=== PATIENT | female | born 1960 | race Caucasian/White ===

== ENCOUNTER 2025-10-08 08:45 | Outpatient (AMB) | payer OTHER, SELFPAY ==
--- OUTSIDE RECORDS SUMMARY | 2025-06-02 03:30 | XMS_ITS ---
Author Organization [facility] Address [address] [place] [address] Care Team Providers Care Recreation Assistant Name Role Phone Luz Toledo Primary Care Provide Keshia Jimenez Unavailable [phone] Encounters Encounter Location Date Provider [facility] [address] [address] 06/02/2025 Keshia Ying Plan Of Treatment No Information Progress Notes * aKl HARDINGenDOB: (64 yo F)Acc No.[id number]:06/02/2025 Progress Notes Patient: Suzanne BERMUDEZ Provider: Ronald Ying DPM :1960 A ge:64 Y S ex:Female Date:06/02/2025 Address:[address] [place], [place] [id number] Pcp:Luz Jacobo in Subjective: * Chief Complaints: * * Medical History: Objective: * Vitals: Assessment: Plan: * Treatment: * Images: * The named appointment provid er may or may not be the originator of this progress note, and it is not deemed complete until electronically signed by the appointment provider. Sign off status: Pending * Provider: Ronald Ying DPM Date: 0 06/02/2025 Generated for Delmy rivera/Matthew/eTransmitting on: 1 12/09/2024 09:27 AM EST
[2025-10-08 08:50] VITALS: BMI 27.0
--- NOTE | 2025-10-08 08:50 | A.PHYSOV ---
Vital Signs 10/08/25 08:50 Height 5 ft 8.5 in Weight 180 lb BMI 27.0 Intake Visit Reasons: NPV Sally Ref-acute pain lt shoulder/cervicalgia Intake Note: Patient is a 64 year old female in office today as a new patient for left shoulder pain. Pain became worse in July [employer] Required: No Allergies No Known Allergies Allergy (Verified 10/08/25 08:51) HPI Comments Details: History of Present Illness The patient is a 64 year old female presenting with problematic left shoulder pain that started approximately six months ago. She initially thought it was arthritis and was previously doing yoga, which seemed to alleviate the symptoms, but she stopped after her father became ill. There was no specific injury. The patient reports that the pain is now constant, occurring even at rest, and is aggravated by all activities, including overhead movements like putting on a shirt and driving. The pain also interferes with her sleep, as she can no longer lie on her left side, and it radiates down into her bicep and elbow. She denies any numbness or tingling in her hand. For treatment, she has been taking Advil and using lidocaine patches. She has not undergone physical therapy for this issue. Recent x-rays of the shoulder from September 24 showed mild arthritis. Her past medical history is significant for arthritis in multiple other joints. She has a history of receiving cortisone shots in her other shoulder, thumb, and foot. She denies a history of diabetes. Patient also reports neck pain. Pain Description - Onset: The patient's left shoulder pain began approximately six months ago. - Location: The pain is located in the left shoulder. - Radiation: The pain radiates down into her bicep and elbow. - Quality: The pain is present even at rest. - Exacerbating Factors: The pain is worsened by nearly all activities, including putting on a shirt, overhead movements, driving, and lying on her left side at night. - Relieving Factors: Previously, yoga helped alleviate the pain; she currently uses Advil and lidocaine patches for relief. Results - X-ray Left Shoulder (09/24/2025): Results show mild arthritis. - X-ray Neck: 09/24/2025 demonstrated degenerative changes primarily affecting C5-C6 level. COUNT INCLUDES THE [facility] Medical History (Updated 10/08/25 @ 12:27 by Torres Bryan DO) Neck pain Rotator cuff impingement syndrome of left shoulder Left shoulder pain Adhesive capsulitis of left shoulder Surgical History (Updated 10/08/25 @ 08:53 by Doreen Suazo MA) H/O breast biopsy (Unknown) H/O tubal ligation (Unknown) History of appendectomy (Unknown) Social History (Updated 10/08/25 @ 08:53 by Doreen Suazo MA) Household Members: Spouse Alcohol intake: current Alcohol intake frequency: holidays/special occasions only Patient Tobacco Use Status: Never used Tobacco Current occupational status: employed Review of Systems Narrative Review of Systems - Musculoskeletal: Reports left shoulder pain for 6 months, which radiates to her bicep and elbow. - She also notes having arthritis in many different places and neck stiffness. - Neurological: Denies numbness or tingling in her hand. - Constitutional: Denies weakness, except for that caused by pain. Denies change in bowel bladder habits, denies fever or chills Physical Exam Exam Exam: Physical Exam - Shoulder (Left): Limited range of motion with significant pain elicited on forward elevation and both internal and external rotation. Painful end point of motion in all planes with left shoulder range of motion testing - Pain is present with nearly any motion. - Neurological: Reflexes are normal. - Musculoskeletal: No weakness noted, except as limited by pain. Spurling maneuver was negative. Lhermitte's sign was negative. Neurological examination was nonfocal. Patient was able to ambulates without antalgia. She was able to perform heel walk and toe walk. Vital Signs: BMI result Body Mass Index 27.0 Assessment & Plan Assessment & Plan (1) Adhesive capsulitis of left shoulder: Code(s): M75.02 - Adhesive capsulitis of left shoulder Category: Medical (2) Left shoulder pain: Code(s): M25.512 - Pain in left shoulder Category: Medical Qualifiers: Chronicity: chronic Qualified Code(s): M25.512 - Pain in left shoulder; G89.29 - Other chronic pain (3) Rotator cuff impingement syndrome of left shoulder: Code(s): M75.42 - Impingement syndrome of left shoulder Category: Medical (4) Neck pain: Code(s): M54.2 - Cervicalgia Category: Medical Plan Pain Management - Analgesia: The patient is currently taking Advil and using lidocaine patches for her left shoulder pain. - Activities of Daily Living: The pain interferes with overhead activities such as dressing, driving, and sleeping on her left side. Plan Patient was informed and verbally consented to the use of an ambient scribe for clinic note documentation during this visit. 1. Left Shoulder Pain The patient's left shoulder pain is chronic and significantly impacts her activities of daily living. X-rays show only mild arthritis, and there is nothing broken. The initial plan is to start with conservative treatment, including a referral for physical therapy. Alongside physical therapy, a daily supplement of 2000 mg of turmeric with black pepper is recommended for its anti-inflammatory properties. A cortisone injection is an option, but the patient wishes to avoid it at this time. An MRI of the shoulder may be considered in the future, but insurance will require a trial of conservative care first. Follow-up is planned in approximately two months to reassess progress. 2. Neck pain and stiffness also will be addressed with physical therapy Discussion Notes I explained to the patient that her shoulder x-rays showed nothing broken, only mild arthritis. I presented several treatment options, and we agreed to start with physical therapy as the first option. I also recommended she start a turmeric supplement, 2000 mg daily, ensuring it contains black pepper for absorption, and advised her that it would take time to build up in her system. We discussed that she does not take blood thinners, which is the main contraindication for turmeric. I informed her that a corticosteroid injection is another option, but she expressed a preference to avoid it. We also discussed that an MRI could be done, but insurance would likely require a trial of conservative care, such as physical therapy, before approving it. I provided a referral for physical therapy and recommended a follow-up appointment in about two months to monitor her progress. Patient Instructions - Begin physical therapy for your left shoulder. - A referral has been provided, and you can choose your preferred location. - Take a turmeric supplement, 2000 mg per day. - Make sure the product contains black pepper to help with absorption and be aware that it may take some time to notice benefits. - You may continue to use Advil and lidocaine patches as needed for pain. - You have chosen to avoid a cortisone injection at this time. - Schedule a follow-up visit in approximately two months to review your progress. Orders: Orders PT Evaluation and Treatment Today M25.512 - Pain in left shoulder, M75.02 - Adhesive capsulitis of left shoulder, M75.42 - Impingement syndrome of left shoulder Coding Level of Care Code Tele New Pt Level 4 (07117) Complex visit Add On G2211 Diagnoses Adhesive capsulitis of left shoulder M75.02 Chronic left shoulder pain M25.512; G89.29 Chronicity: chronic Rotator cuff impingement syndrome of left shoulder M75.42 Neck pain M54.2
--- OUTSIDE RECORDS SUMMARY | 2025-10-08 09:28 | XMS_ITS | Clinical Summary ---
Author Organization [address] Address [address] [place] [phone] Phone Care Team Providers Care Integrity Engineer Name Role Phone Luz Rey MD Primary Care Prov ider Allergies No known active allergies Medications loratadine (CLARITIN) 10 mg tablet Take 1 tablet (10 mg total) by mouth 1 (one) time each day. Active calcium citrate-vitamin D (CITRACAL+D) 315 mg-5 mcg (200 unit) per tablet Take 1 tablet by mouth 1 (one) time each day. Active sertraline (ZOLOFT) 50 mg tablet Take 1.5 tablets (75 mg total) by mouth 1 (one) time each day. 135 each 1 5 02/22/20 26 Active estradioL (ESTRACE) 0.01 % (0.1 mg/gram) vaginal cream Insert 2 g into the vagina 1 (one) time each day. 5 09/24/20 25 Discontinu ed(Therapy completed) Active Problems Problem Noted Date Diagnosed Date Iron deficiency anemia 04/24/2025 Subclinical hypothyroidism 08/31/2023 Vitamin D deficiency 08/30/2021 B12 deficiency 08/30/2021 Anxiety 08/30/2021 Hip strain 11/29/2016 Diverticulosis 07/02/2012 Overview (09/18/2024): Incidental finding on colonoscopy Nonallopathic lesion of thoracic region 10/22/20 09 Overview (09/18/2024): IMO update Menopausal and postmenopausal disorder 9 Cervicalgia 10/22/2009 Encounters Date Type Department Care Team Description 09/25/2025 Results Follow-Up Adult [facility] [address] [place] [phone] Mitchell العراقي PA 09/24/2025 2:12 PM EST - 09/24/2025 11:59 PM EST [facility] [address] [place] [phone] Acute pain of left shoulder; Cervicalgia Discharge Disposition: Home or Self Care 09/24/2025 2:11 PM EST - 09/24/2025 11:59 PM EST [facility] [address] [place] [phone] Acute pain of left shoulder; Cervicalgia Discharge Disposition: Home or Self Care 09/24/2025 1:45 PM EST Office Visit [facility] [address] [place] [phone] Mitchell العراقي PA Acute pain of left shoulder (Primary Dx); Cervicalgia 09/04/2025 9:00 AM EDT Office Visit [facility] [address] [place] [phone] Michelle Du PA Right wrist pain (Primary Dx); Paresthesias in right hand; Right elbow pain 08/25/2025 4:00 PM EDT Office Visit [facility] [address] [place] [phone] Jessica Mancia PA Anxiety (Primary Dx); Trigger finger of right thumb; Chest pain, unspecified type 08/25/2025 7:30 AM EDT Ancillary Procedure [facility] [address] [place] [phone] Chest pain, unspecified type 08/25/2025 Results Follow-Up [facility] [address] [place] [phone] Jessica Mancia PA 08/05/2025 11:00 AM EDT Consult [facility] [address] [place] [phone] Michelle Du PA Trigger finger of right thumb (Primary Dx); Primary osteoarthritis of first carpometacarpal joint of right hand 07/22/2025 11:00 AM EDT - 07/22/2025 11:59 PM EDT [facility] [address] [place] [phone] Right hand pain Discharge Disposition: Home or Self Care 07/22/2025 10:15 AM EDT Office Visit [address] [phone] Jessica Mancia PA Chest pain, unspecified type (Primary Dx); Right hand pain; Anxiety from Last 3 Months Immunizations Immunization Administration Dates Next Due Influenza Quadravalent, MDCK , 0.5ml, preservative free (Flucelvax) 6mo and older 08/31/2023,08/06/2018 Influenza Quadravalent, MDCK , 0.5ml, with preservative (Flucelvax) 6mo and older 08/16/2020,07/20/2020,09/10/2019,2018,08/07/2017 Influenza trivalent, 0.5mL, preservative free (Fluarix; FluLaval; Fluzone) ages 6mo and older (Afluria) 3 years and older 09/01/2024,08/10/2022,09/10/2017,2015,08/05/2013,08/07/2011 Influenza trivalent, with preservative (Fluzone; Afluria) 6mo and older 07/29/2025,08/05/2015,08/05/2014,2011,09/05/2011 Influenza, Unspecified 08/19/2023,08/06/2021,12/2013 Moderna SARS-CoV-2 COVID-19, mRNA, LNP-S, preservative free 10/18/2021 Td Tetanus diptheria (Tdvax) 7yo and older 04/18/2004,02/05/2002 Tdap Tetanus diptheria acell ular pertussis (Boostrix; Adacel) 7yo and older 03/03/2024,01/12/2012 Zoster recombinant (Shingrix ) 19yo and older 2021,08/06/2021 Surgical History Surgery Date Site/Laterality Comments TUBAL LIGATION 1986 PROCEDURE: HISTORICAL TUBAL LIGATION TONSILLECTOMY age 7 PROCEDURE: HISTORICAL TONSILLECTOMY APPENDECTOMY age 13 PROCEDURE: MD APPENDECTOMY COLONOSCOPY 07/02/12 PROCEDURE: HISTORICAL COLONOSCOPY; COMMENT: tics; repeat in ten yrs BREAST BIOPSY PROCEDURE: BX BREAST; PERC NEEDLE CORE W/IMAG GUID; COMMENT: rt brst bx neg Medical History Medical History Date Comments Cervicalgia 10/22/2009 DX:Cervicalgia Nonallopathic lesion of thor acic region, not elsewhere classified 10/22/2009 DX:Nonallopathic lesi on of thoracic region, not elsewhere classified Menopausal and postmenopausa l disorder 10/22/2009 DX:Menopausal and postmenopa usal disorder Diverticulosis 07/02/2012 DX:Diverticulosi s; COMMENT: Incidental finding on colonoscopy Subclinical hypothyroidism DX:[place] bclinical hypothyroidism Anxiety 08/30/2021 Family History Medical History Relation Name Comments Other: microcephalic at Brother No Known Problems Daughter Diabetes Father Other: amd Father Stroke Father Hyperlipidemia Mother normal pressu re hydrocephalus. Fell and from subdural hematoma Breast cancer Other 1 pat aunt Breast cancer Other 2 pat cousin x 2 Diabetes Paternal Grandmother No Known Problems Sister 1 No Known Problems Sister 2 Diabetes Sister 3 Other: cerebral palsy Sister 3 No Known Problems Son 1 No Known Problems Son 2 Relation Name Status Comments Brother Daughter Alive Father Alive Maternal Grandfather Maternal Grandmother Mother (Age 88) Other 1 pat aunt Other 2 pat cousin x 2 Alive Paternal Grandfather Paternal Grandmother Sister 1 Alive Sister 2 Alive Sister 3 Sister 4 Son 1 Alive Son 2 Alive Social History Tobacco Use Types Packs/Day Years Used Date Smoking Tobacco: Never Smokeless Tobacco: Never Tobacco Cessation:Counseling Given: Not Answered Alcohol Use Standard Drinks/Week Comments Yes 0 (1 standard drink = 0.6 oz pur e alcohol) occasional Comments No Sex and Gender Information Value Date Recorded Sex Assigned at Not on file Legal Sex Female 5:29 PM EST Gender Identity Not on file Sexual Orientation Not on file Obstetrics History Para Term AB IAB SAB Ectopic Multiple Livin g Live Births 3 3 3 3 Date Outcome GA Total Labor Labor/2nd/3rd Weight Sex Type Anes PTL [place] A1 A5 Name Clin Term Term Term Last Filed Vital Signs Vital Sign Reading Time Taken Comments Blood Pressure 111/72 09/24/2025 1:47 PM EST Pulse 85 08/25/2025 3:59 PM EDT Temperature 36.8 C (98.2 F) 09/24/2025 1:47 PM EST Respiratory Rate 18 07/22/2025 10:22 AM EDT Oxygen Saturation 97% 07/04/2025 9:52 AM EDT Inhaled Oxygen Concentration - - Weight 82.6 kg (182 lb) 09/24/2025 1:47 PM EST Height 174 cm (5' 8.5 ) 08/25/2025 3:59 PM EDT Body Mass Index 27.27 08/25/2025 3:59 PM EDT Plan of Treatment Upcoming Encounters Date Type Department Care Team (Late st Contact Info) Description 10/23/2025 12:00 PM EST Office Visit Adult [facility] [address] [place] [phone] Jessica Mancia, ZENON [address] [place] [address] Health Maintenance Due Date Last Done Comments Pneumococcal Vaccine: 50+ Years (1 of 1 - PCV) 2010 Cervical Cancer Screening: Pap Smear 12/21/2017 12/21/2014 HIV Screening 10/14/2022 Social Influencers of Health Screening 10/14/2022 Depression Screening 11/05/2024 COVID-19 Vaccine ( season) 2025 10/18/2021, 02/25/2021, 01/28/2021 Breast Cancer Screening 05/12/2027 05/12/20, 05/06/2024, 05/06/2024, Additional history exists Cholesterol Screening (Lipid Panel) 09/01/2029 09/01/2024, 09/01/2024 Colorectal Cancer Screening: Colonoscopy 05/04/2033 05/04/2023 DTaP,Tdap,and Td Vaccines (5 - Td or Tdap) 03/03/2034 03/03/2024, 01/12/2012, 04/18/2004, Additional history exists Osteoporosis Screening (Bone Density Screening) 09/23/2034 09/23/2024, 01/16/2018 RSV Immunization Adult Patients (1 - 1-dose 75+ series) 2035 Zoster Vaccines Completed 11/25/2021, 02/2022, 08/19/2021, Additional history exists Hepatitis C Screening Completed 01/10/2022 Colorectal Cancer Screening: Stool Based Tests (FOBT/FIT) Discontinued 05/25/2025, 04/28/2024, 04/24/2023, Additional history exists Influenza Vaccine Completed 07/31/2025, , 09/01/2024, Additional history exists HIB Vaccines Aged Out No longer eligi ble based on patient's age to complete this topic HPV Vaccines Aged Out No longer eligi ble based on patient's age to complete this topic Hepatitis A Vaccines Aged Out No long er eligible based on patient's age to complete this topic Hepatitis B Vaccines Aged Out No long er eligible based on patient's age to complete this topic IPV Vaccines Aged Out No longer eligi ble based on patient's age to complete this topic MMR Vaccines Aged Out No longer eligi ble based on patient's age to complete this topic Meningococcal ACWY Vaccine Aged Out N o longer eligible based on patient's age to complete this topic Meningococcal B Vaccine Aged Out No l onger eligible based on patient's age to complete this topic RSV Immunization Patients Under 20 months Aged Out No longer eligible based on patient's age to complete this topic Varicella Vaccines Aged Out No longer eligible based on patient's age to complete this topic Procedures Procedure Name Priority Date/Time Associated Diagnosis Comments XR SHOULDER 2+ VIEWS LEFT Routine 09/24/2025 2:24 PM EST Acute pain of left shoulder Cervicalgia XR CERVICAL SPINE 4-5 VIEWS Routine 09/24/2025 2:23 PM EST Acute pain of left shoulder Cervicalgia XR ELBOW 3+ VIEWS RIGHT Routine 09/04/2025 9:35 AM EDT Right wrist pain Paresthesias in right hand Right elbow pain STRESS ECHOCARDIOGRAM EXERCISE WITH CONTRAST Routine 08/25/2025 8:04 AM EDT Chest pain, unspecified type MD INJECTION SINGLE TENDON SHEATH OR LIGAMENT APONEUROSIS Routine 08/05/2025 11:00 AM EDT Trigger finger of right thumb ECG 12-LEAD Routine 07/22/2025 12:24 PM EDT Chest pain, unspecified type XR HAND 3+ VIEWS RIGHT Routine 11:09 AM EDT Right hand pain MG MAMMO DIGITAL DIAGNOSTIC W SUKHWINDER BILAT Routine 05/12/2025 9:23 AM EDT Abnormal mammogram BD BONE DENSITY DXA AXIAL SKELETON Routine 09/23/2024 3:12 PM EST Symptomatic menopausal or female climacteric states LIPID PANEL Routine 09/01/2024 HM COLONOSCOPY Routine 05/04/2023 HM HEPATITIS C SCREENING Routine 01/10/2022 PAP SMEAR Routine 12/21/2014 from Last 3 Months or Most Recently Relevant to Health Maintenance Results * XR Shoulder 2+ Views Left (09/24/2025 2:24 PM EST) Anatomical Region Laterality Modality Upper Extremities, Shoulder Left Radi ographic Imaging 09/25/2025 8:35 AM EST Impressions 09/25/2025 8:38 AM EST Mild degenerative changes. -------- FINAL REPORT -------- Dictated By: Carmen Galeana Dictated Date: 09/25/2025 08:35 ET Assigned Physician: Carmen Galeana Reviewed and Electronically Signed By: Carmen Galeana Signed Date: 09/25/2025 08:38 ET Workstation ID: [id number] Transcribed By: Self Edit Transcribed Date: 09/25/2025 08:35 ET Narrative 09/25/2025 8:38 AM EST EXAM: Left shoulder x-ray HISTORY: Left shoulder pain. COMPARISON: None FINDINGS: 4 views performed. Mild degenerative changes at the acromioclavicular and inferior glenohumeral joints. No acute fracture or dislocation detected. No destructive bone lesion. No soft tissue calcifications. Procedure Note Carmen Galeana MD - 09/25/2025 EXAM: Left shoulder x-ray HISTORY: Left shoulder pain. COMPARISON: None FINDINGS: 4 views performed. Mild degenerative changes at the acromioclavicular and inferiorglenohumeral joints. No acute fracture or dislocation detected. Nodestructive bone lesion. No soft tissue calcifications. IMPRESSION: Mild degenerative changes. -------- FINAL REPORT -------- Dictated By: Carmen Galeana Dictated Date: 09/25/2025 08:35 ET Assigned Physician: Carmen Galeana Reviewed and Electronically Signed By: Carmen Galeana Signed Date: 09/25/2025 08:38 ET Workstation ID: [id number] Transcribed By: Self Edit Transcribed Date: 09/25/2025 08:35 ET Mitchell YARBROUGH IMG XR PROCEDURES Final Result * XR Cervical Spine 4-5 Views (09/24/2025 2:23 PM EST) Anatomical Region Laterality Modality Spine, C-spine Radiographic Jeni ging 09/25/2025 8:30 AM EST Impressions 09/25/2025 8:35 AM EST Degenerative changes, greatest at C5-6. -------- FINAL REPORT -------- Dictated By: Carmen Galeana Dictated Date: 09/25/2025 08:30 ET Assigned Physician: Carmen Galeana Reviewed and Electronically Signed By: Carmen Galeana Signed Date: 09/25/2025 08:35 ET Workstation ID: [id number] Transcribed By: Self Edit Transcribed Date: 09/25/2025 08:30 ET Narrative 09/25/2025 8:35 AM EST EXAM: Cervical spine x-ray HISTORY: Cervicalgia. No recent trauma. COMPARISON: None available for direct comparison. FINDINGS: 4 views performed. Cervical spine is visualized through C7 on the lateral projection. No compression deformities. Severe disc space narrowing at C5-6 with mild anterior endplate spurring. Uncovertebral spurring and facet arthropathy at a few levels. On the right, mild to moderate neural foraminal encroachment at C5-6 and C4-5. On the left, mild neural foraminal encroachment at C4-5. Atlantoaxial distance is within normal limits. No abnormal thickening of the prevertebral soft tissues. Procedure Note Carmen Galeana MD - 09/25/2025 EXAM: Cervical spine x-ray HISTORY: Cervicalgia. No recent trauma. COMPARISON: None available for direct comparison. FINDINGS: 4 views performed. Cervical spine is visualized through C7 on the lateral projection. Nocompression deformities. Severe disc space narrowing at C5-6 with mild anterior endplate spurring.Uncovertebral spurring and facet arthropathy at a few levels. On the right, mild to moderate neural foraminal encroachment at C5-6 andC4-5. On the left, mild neural foraminal encroachment at C4-5. Atlantoaxial distance is within normal limits. No abnormal thickening ofthe prevertebral soft tissues. IMPRESSION: Degenerative changes, greatest at C5-6. -------- FINAL REPORT -------- Dictated By: Carmen Galeana Dictated Date: 09/25/2025 08:30 ET Assigned Physician: Carmen Galeana Reviewed and Electronically Signed By: Carmen Galeana Signed Date: 09/25/2025 08:35 ET Workstation ID: [id number] Transcribed By: Self Edit Transcribed Date: 09/25/2025 08:30 ET Mitchell YARBROUGH IMG XR PROCEDURES Final Result * XR Elbow 3+ Views Right (09/04/2025 9:35 AM EDT) Anatomical Region Laterality Modality Upper Extremities, Elbow Right Compute d Radiography Narrative 09/04/2025 9:43 AM EDT Date of Visit: 09/04/2025 Reason for visit: Right elbow pain Views: AP, lateral, oblique right elbow Comparison: None Findings: Elbow x-rays show no fracture, dislocation or lytic lesions. Normal radiocapitellar and ulnohumeral relationships. No bone spur formation. No arthritis Impression: Normal right elbow radiograph us Michelle YARBROUGH IMG XR PROCEDURES Final Resul t * STRESS ECHOCARDIOGRAM EXERCISE WITH CONTRAST (08/25/2025 8:04 AM EDT) BSA 1.99 m2 CV PACS STRESS Target HR 133 bpm CV PACS STRESS Exercise/inject ion duration (min) 8 min CV PACS STRESS Exercise/inject ion duration (sec) 0 sec CV PACS STRESS Baseline HR 62 bpm CV PACS STRESS Peak HR 153 bpm CV PACS STRESS Estimated workload 10.3 METS CV PACS STRESS Percent HR 98 % CV PACS STRESS Max HR Percent 98 % CV PACS STRESS LVIDD 4.5 3.8 - 5.2 cm CV PACS STRESS LVIDD Index 2.30 cm/m2 CV PACS STRESS LVPWD 0.8 0.6 - 0.9 cm CV PACS STRESS IVSD 0.8 0.6 - 0.9 cm CV PACS STRESS LV Mass 2D 120 66 - 150 g CV PACS STRESS LV Mass Index 2D 58 44 - 88 g/m2 CV PACS STRESS Relative Wall Thickness ratio 0.38 0.22 - 0.42 CV PACS STRESS Aortic Sinus Valsalva 2.9 cm CV PACS STRESS Anatomical Region Laterality Modality Ultrasound Narrative 08/25/2025 1:41 PM EDT Post Stress Impression: The study is negative and shows no echocardiographic evidence of ischemia. Normal wall motion, unchanged from baseline. Exercise stress test was performed. Exercise capacity was above average. Normal blood pressure response. Non-specific ST changes with exercise. No chest pain or significant arrhythmias. Left Ventricle Left ventricle cavity size is normal. Wall thickness is normal. Systolic function is normal with an ejection fraction of 55-60%. There are no regional LV wall motion abnormalities. Right Ventricle Systolic function is normal. Study Details Overall the study quality was adequate. Definity contrast was given to enhance imaging. Stress Findings A Ulysses protocol stress test was performed. Overall, the patient's exercise capacity was above average. Total stress time was 8 min and 0 sec. The test was stopped because the patient experienced fatigue. The patient's hemodynamic response was adequate for diagnosis. Blood pressure demonstrated a normal response. Heart rate demonstrated a normal response. The patient reported dyspnea at peak exercise. ECG 64 year old female with reports of chest discomfort and dyspnea. Rule out ischemia. The ECG shows normal sinus rhythm. There were no arrhythmias during stress. Artifact with peak exercise. 1 mm j point depressions with upsloping in early recovery not meeting strict criteria for ischemia. There were no arrhythmias during recovery. Echo Post Stress Left ventricular cavity size decreased from baseline. Left ventricular systolic function improved from baseline. Systolic function is hyperdynamic with an ejection fraction over 70%. Normal wall motion, unchanged from baseline. Nuclear Measurements The study is negative and shows no echocardiographic evidence of ischemia. Procedure Note Lucretia Muhammad NP / Giacomo Singh MD - 08/25/2025 Post Stress Impression: The study is negative and shows noechocardiographic evidence of ischemia. Normal wall motion, unchanged from baseline. Exercise stress test was performed. Exercise capacity was aboveaverage. Normal blood pressure response. Non-specific ST changes with exercise. No chest pain or significantarrhythmias. us Jessica YARBROUGH CV ECHO PROCEDURES Final R esult * MD INJECTION SINGLE TENDON SHEATH OR LIGAMENT APONEUROSIS (08/05/2025 11:00 AM EDT) Narrative Michelle Du PA - 08/05/2025 11:00 AM EDT ZENON Vogt 08/05/2025 11:28 AM Hand / UE Inj/Asp: R thumb A1 for trigger finger Indications: pain Details: 25 G needle, volar approach Medications: 40 mg triamcinolone acetonide 40 mg/mL; 0.5 mL lidocaine 1 % Informed Consent: Laterality: Right Relevant images/test results available and reviewed: yes Health status cleared: Yes Procedure/treatment, purpose, treatment alternatives, risks/potential complications and benefits explained: yes Risk/complications/benefits details: Risks of infection, thinning of the skin and temporary skin discoloration discussed. Discussed risks of temporary increased pain after injection and swelling and mild redness at injection site for couple days. Explained occasionally cortisone injection can cause facial flushing temporarily. Benefits pain management. For postop injection pain ice, Tylenol and/or NSAIDs if patient can take Patient questions answered: yes Patient agrees, verbalizes understanding, and wants to proceed: yes Consent given by: Patient Informed consent discussion completed by Physician/KYLE with patient: Verbal Pre-procedure timeout performed: yes us Michelle YARBROUGH IN CLINIC/BEDSIDE ORDERABLES Final Result * ECG 12 lead (07/22/2025 12:24 PM EDT) Narrative Jessica Mancia PA - 07/22/2025 12:24 PM EDT Sinus rhythm us Jessica YARBROUGH ECG ORDERABLES Final Resu lt * XR Hand 3+ Views Right (07/22/2025 11:09 AM EDT) Anatomical Region Laterality Modality Upper Extremities, Hand Right Radiogra phic Imaging 07/22/2025 1:47 PM EDT Impressions 07/22/2025 1:49 PM EDT Mild osteoarthritis. No acute findings. -------- FINAL REPORT -------- Dictated By: Tory Deluna Dictated Date: 07/22/2025 13:47 ET Assigned Physician: Tory Deluna Reviewed and Electronically Signed By: Tory Deluna Signed Date: 07/22/2025 13:49 ET Workstation ID: [id number] Transcribed By: Self Edit Transcribed Date: 07/22/2025 13:47 ET Narrative 07/22/2025 1:49 PM EDT RIGHT HAND VIEWS: 3 routine plus additional lateral view of the right thumb. HISTORY: Hand/thumb pain. FINDINGS: There is mild degenerative spurring of the first CMC joint; IP joint; third PIP joint; second and third DIP joints. There is no acute fracture, malalignment, joint effusion, soft tissue abnormality, or radiopaque foreign body. Procedure Note Tory Deluna MD - 07/22/2025 RIGHT HAND VIEWS: 3 routine plus additional lateral view of the right thumb. HISTORY: Hand/thumb pain. FINDINGS: There is mild degenerative spurring of the first CMC joint; IPjoint; third PIP joint; second and third DIP joints. There is no acute fracture, malalignment, joint effusion, soft tissueabnormality, or radiopaque foreign body. IMPRESSION: Mild osteoarthritis. No acute findings. -------- FINAL REPORT -------- Dictated By: Tory Deluna Dictated Date: 07/22/2025 13:47 ET Assigned Physician: Tory Deluna Reviewed and Electronically Signed By: Tory Deluna Signed Date: 07/22/2025 13:49 ET Workstation ID: [id number] Transcribed By: Self Edit Transcribed Date: 07/22/2025 13:47 ET us Jessica YARBROUGH IMG XR PROCEDURES Final Re sult * MG Mammo Digital Diagnostic w Sukhwinder bilat (05/12/2025 9:23 AM EDT) Anatomical Region Laterality Modality Breast Bilateral Mammography 05/12/2025 10:0 3 AM EDT Impressions 05/12/2025 10:15 AM EDT 1. No mammographic evidence of malignancy 2. Right breast 6:00 lesion has previously been biopsied and proved to be benign. 3. Heterogeneously dense Findings and recommendations were conveyed to the patient. BI-RADS CATEGORY: 2 - BENIGN RECOMMENDATION: Return to annual mammography. Return to annual mammography. Mammo Location: [facility], [address] [place] [address], [id number], . -------- FINAL REPORT -------- Dictated By: Avis Goff Dictated Date: 05/12/2025 10:03 ET Assigned Physician: Avis Goff Reviewed and Electronically Signed By: Avis Goff Signed Date: 05/12/2025 10:15 ET Workstation ID: [id number] Transcribed By: Self Edit Transcribed Date: 05/12/2025 10:03 ET Narrative 05/12/2025 10:15 AM EDT BILATERALDIGITAL DIAGNOSTIC 3D MAMMOGRAPHY HISTORY: Follow-up for previously biopsied right breast 6:00 lesion at outside hospital which was biopsy proven to be benign. Patient also had a benign right breast 3:00 biopsy COMPARISON: Multiple mammograms dating back to 10/13/2020 and ultrasounds dating back to 04/30/2024 Technique: Bilateral CC and MLO full field views 3-D FINDINGS: Right: No suspicious masses, microcalcifications or areas of architectural distortion. Biopsy markers are present within the lower inner breast. Stable typically benign parenchymal asymmetries. Left: No suspicious masses, microcalcifications or areas of architectural distortion. Stable typically benign parenchymal asymmetries. BREAST DENSITY: C - The breasts are heterogeneously dense which may obscure small masses. EXAM: RIGHT BREAST TARGETED ULTRASOUND EVALUATION HISTORY: Follow-up for 6:00 previously biopsied lesion TECHNIQUE: Ultrasonographic examination is performed using a linear array transducer. Targeted right breast ultrasound at 6:00 for follow-up. FINDINGS: At 6:00, there is a morphologically stable hypoechoic lesion measuring 0.6 x 0.5 x 0.6 cm containing a biopsy clip. No vascularity. Procedure Note Avis Goff MD - 05/12/2025 BILATERALDIGITAL DIAGNOSTIC 3D MAMMOGRAPHY HISTORY: [facility]. Patient also had abenign right breast 3:00 biopsy COMPARISON: Multiple mammograms dating back to 10/13/2020 and ultrasoundsdating back to 04/30/2024 Technique: Bilateral CC and MLO full field views 3-D FINDINGS: Right: No suspicious masses, microcalcifications or areas of architecturaldistortion. Biopsy markers are present within the lower inner breast.Stable typically benign parenchymal asymmetries. Left: No suspicious masses, microcalcifications or areas of architecturaldistortion. Stable typically benign parenchymal asymmetries. BREAST DENSITY: C - The breasts are heterogeneously dense which mayobscure small masses. EXAM: RIGHT BREAST TARGETED ULTRASOUND EVALUATION HISTORY: Follow-up for 6:00 previously biopsied lesion TECHNIQUE: Ultrasonographic examination is performed using a linear arraytransducer. Targeted right breast ultrasound at 6:00 for follow-up. FINDINGS: At 6:00, there is a morphologically stable hypoechoic lesion measuring 0.6x 0.5 x 0.6 cm containing a biopsy clip. No vascularity. IMPRESSION: 1. No mammographic evidence of malignancy 2. Right breast 6:00 lesion has previously been biopsied and proved to bebenign. 3. Heterogeneously dense Findings and recommendations were conveyed to the patient. BI-RADS CATEGORY: 2 - BENIGN RECOMMENDATION: Return to annual mammography. Return to annual mammography. Mammo Location: [facility], [address] [place] [address], [id number], . -------- FINAL REPORT -------- Dictated By: Avis Goff Dictated Date: 05/12/2025 10:03 ET Assigned Physician: Avis Goff Reviewed and Electronically Signed By: Avis Goff Signed Date: 05/12/2025 10:15 ET Workstation ID: [id number] Transcribed By: Self Edit Transcribed Date: 05/12/2025 10:03 ET us Bouchra Johnson MD IMG BI PROCEDURES Final Resu lt * BD Bone Density DXA Axial Skeleton (09/23/2024 3:12 PM EST) Anatomical Region Laterality Modality Wrist, Hip, L-spine Bone Densito metry 09/23/2024 3:16 PM EST Impressions 09/23/2024 3:19 PM EST Normal bone mineral density by WHO criteria. The [facility] Department of Internal Medicine recommends using National Osteoporosis Foundation (NOF) guidelines in treatment decisions related to osteoporosis. NOF guidelines suggest considering treatment for postmenopausal women and men aged 50 or older presenting with the following: History of hip or vertebral fracture. T-score = -2.5 (DXA) at the femoral neck, total hip, or spine, after appropriate evaluation to exclude secondary causes. Low bone mass (T-score between -1.0 and -2.5 at the femoral neck or spine) AND a 10-year probability of a hip fracture = 3% OR a 10-year probability of a major osteoporosis-related fracture = 20% based on the [place]-adapted WHO algorithm Please note that all treatment decisions require clinical judgment and consideration of individual patient factors, including patient preferences, co-morbidities, previous drug use, risk factors not captured in the FRAX model (e.g., frailty, falls, vitamin D deficiency, increased bone turnover, interval significant decline in bone density) and possible under- or over-estimation of fracture risk by FRAX. Optional alternative screening schedule based on genet Villarreal., [facility] November 23, 2011 for patients with osteopenia (based on hip BMD T-score) is as follows: * advanced osteopenia (T scores -2.00 to -2.49), BMD testing every year * moderate osteopenia (T scores -1.50 to -1.99), BMD testing every 5 years mild osteopenia or normal BMD (T scores -1.50 and higher), BMD testing every 15 years -------- FINAL REPORT -------- Dictated By: Carmen Galeana Dictated Date: 09/23/2024 15:16 ET Assigned Physician: Carmen Galeana Reviewed and Electronically Signed By: Carmen Galeana Signed Date: 09/23/2024 15:19 ET Workstation ID: [id number] Transcribed By: Self Edit Transcribed Date: 09/23/2024 15:16 ET Narrative 09/23/2024 3:19 PM EST BONE DENSITY SCAN (DEXA) FINDINGS: Lumbar Spine T-score is -0.5. (SD relative to 20-29 y/o adult) Z-score is 1.1. (SD relative to age matched peers) This is considered normal by WHO criteria. Left Hip T-score is -0.9. Z-score is 0.3. This is considered normal by WHO criteria. Comparison: 01/16/2018. 4.2% increase in left hip bone mineral density which is statistically significant at the 95% confidence level. No statistically significant change in lumbar spine bone mineral density. Procedure Note Carmen Galeana MD - 09/23/2024 BONE DENSITY SCAN (DEXA) FINDINGS: Lumbar Spine T-score is -0.5. (SD relative to 20-29 y/o adult) Z-score is 1.1. (SD relative to age matched peers) This is considered normal by WHO criteria. Left Hip T-score is -0.9. Z-score is 0.3. This is considered normal by WHO criteria. Comparison: 01/16/2018. 4.2% increase in left hip bone mineral densitywhich is statistically significant at the 95% confidence level. Nostatistically significant change in lumbar spine bone mineral density. IMPRESSION: Normal bone mineral density by WHO criteria. The [facility] Department of Internal Medicine recommendsusing National Osteoporosis Foundation (NOF) guidelines in treatmentdecisions related to osteoporosis. NOF guidelines suggest consideringtreatment for postmenopausal women and men aged 50 or older presentingwith the following: History of hip or vertebral fracture. T-score = -2.5 (DXA) at the femoral neck, total hip, or spine, afterappropriate evaluation to exclude secondary causes. Low bone mass (T-score between -1.0 and -2.5 at the femoral neck or spine)AND a 10-year probability of a hip fracture = 3% OR a 10-year probabilityof a major osteoporosis-related fracture = 20% based on the [place]-adapted WHOalgorithm Please note that all treatment decisions require clinical judgment andconsideration of individual patient factors, including patientpreferences, co-morbidities, previous drug use, risk factors not capturedin the FRAX model (e.g., frailty, falls, vitamin D deficiency, increasedbone turnover, interval significant decline in bone density) and possibleunder- or over-estimation of fracture risk by FRAX. Optional alternative screening schedule based on genet Villarreal., NEJMJanuary 2011 for patients with osteopenia (based on hip BMD T-score)is as follows: * advanced osteopenia (T scores -2.00 to -2.49), BMD testing every year * moderate osteopenia (T scores -1.50 to -1.99), BMD testing every 5years mild osteopenia or normal BMD (T scores -1.50 and higher), BMD testingevery 15 years -------- FINAL REPORT -------- Dictated By: Carmen Galeana Dictated Date: 09/23/2024 15:16 ET Assigned Physician: Carmen Galeana Reviewed and Electronically Signed By: Carmen Galeana Signed Date: 09/23/2024 15:19 ET Workstation ID: [id number] Transcribed By: Self Edit Transcribed Date: 09/23/2024 15:16 ET Bouchra Johnson MD IMG DXA PROCEDURES Final Res ult * (ABNORMAL) Lipid panel (09/01/2024) [facility] LDL/HDL Ratio 3 0 - 4 Triglycerides 233(A) 0 - 150 mg/dL Cholesterol 260(A) 0 - 200 mg/dL HDL 103 >=40 mg/dL LDL Cholesterol 111(A) 0 - 100 mg/dL Blood Venous blood specimen / Unknown [facility] Provider LAB BLOOD ORDERABLES Chyna l Result * Colonoscopy (05/04/2023) [facility] Colonoscopy no interpretation , abstracted Anatomical Region Laterality Modality Other Historical Provider HEALTH MAINTENANCE Final Result * Hepatitis C Screening (01/10/2022) [facility] Hepatitis C Screening abstracted [facility] Provider HEALTH MAINTENANCE Final Result * Pap Smear (12/21/2014) [facility] Pap smear abstracted, negative Historical Provider HEALTH MAINTENANCE Final Result from Last 3 Months or Most Recently Relevant to Health Maintenance Insurance [facility] Care Teams Integrity Engineer Relationship Specialty Start Date End Date Luz Rey MD [address] [place] [id number] PCP - General Internal Medicine 07/25/21
--- OUTSIDE RECORDS SUMMARY | 2025-10-08 09:28 | XMS_ITS | Patient Health Record ---
Author Organization [facility] Address [address] [place] [address] Care Team Providers Care Grubber Name Role Phone Luz Toledo Primary Care Provide r Keshia Zepeda Unavailable [phone] Allergies No Known Allergies Reason For Referral No Information Medications Medication SIG (Take, Route, Fr equency, Duration) Notes Start Date End Date Status Sertraline HCl Activ e Immunizations Vaccine Route Administration Date Status Comme nts Influenza Unknown 08/05/2024 Administered Social History Tobacco Use: Social History Observation Description Date Details (start date - stop date) Never Smoker NA - NA Tobacco use other than smoking: Question Answer Notes Are you an other tobacco user? No Tobacco Control (Standard) Question Answer Notes Tobacco use: Nonsmoker Problems Problem Type SNOMED Code ICD Code Onset Dates Problem Status W/U Status Risk Notes Problem Acquired hallux valgus (70965456) Hallux valgus (acquired), left foot (M20.12) Active confirmed Vital Signs Height 5ft 9.5in in 04/21/2025 Weight 175 lbs 04/21/2025 BMI 25.47 kg/m2 04/21/2025 Procedures Procedure Date Ordered Date Performed Result Body Sit e , [id number]/INJECT, JOINT/BURSA 04/21/2025 N/A Encounters Encounter Location Date [facility] [address] [phone] 04/21/2025 Keshia Ying Pain in left foot M79.672 ; Pain in left ankle and joints of left foot M25.572 ; Bursitis of left foot M77.52 ; Hallux valgus (acquired), left foot M20.12 and Tailor's bunion of left foot M21.622 [facility] [place] [address] [phone] 04/21/2025 [facility] [address] [phone] 04/21/2025 [facility] [address] [phone] 06/02/2025 Keshia Ying Assessments Encounter Date Diagnosis (ICD Code) Assessment Notes Treatment Notes Treatment Clinical Notes Section Notes 04/21/2025 Pain in left ankle and joints of left foot (ICD-10 - M25.572) 04/21/2025 Pain in left foot (ICD-10 - M79.672) 04/21/2025 Bursitis of left foot (ICD-10 - M77.52) 04/21/2025 Hallux valgus (acquired), left foot (ICD-10 - M20.12) 04/21/2025 Tailor's bunion of left foot (ICD-10 - M21.622) 04/21/2025 Other Patient Educated with: RICE THERAPY.pdf (RICE THERAPY.pdf) Patient Educated with: INJECTIONTHERA PY.pdf (INJECTIONTHER APY.pdf) Patient Educated with: RICE THERAPY.pdf (RICE THERAPY.pdf) Patient Educated with: INJECTIONTHERA PY.pdf (INJECTIONTHER APY.pdf) Plan Of Treatment Pending Test Test Name Order Date X ray : Foot, left 3V 04/21/2025 39009, [id number]/INJECT, JOINT/BURSA 0 04/21/2025 Insurance Providers Payer Name Payer Address Payer Phone Subscriber Number Group Number Insured Name Patient Relationship to Insured Coverage Start Date Coverage End Date [facility] [address] [address] [place] [id number] Suzanne Harding Self - patient is the insured Medical (General) History Medical History History ICD Code Anxiety Arthritis Back,Hip,and Knee pain Chicken pox Surgical History Surgery Date(Month/Year) appendectomy 1973 tonsillectomy 1966 tubal ligation 1986
--- OUTSIDE RECORDS SUMMARY | 2025-10-08 09:28 | XMS_ITS | Encounter Summary ---
Author Organization [facility] [place] [address] Care Team Providers Care Examination Grader Name Role Phone Luz Rey MD Primary Care Prov ider Encounter Details Date Type Department Care Team (Late st Contact Info) Description 08/25/2025 Results Follow-Up Adult Medicine [facility] [address] [place] [phone] Jessica Mancia PA [address] [place] [address] Social History Tobacco Use Types Packs/Day Years Used Date Smoking Tobacco: Never Smokeless Tobacco: Never Alcohol Use Standard Drinks/Week Comments Yes 0 (1 standard drink = 0.6 oz pur e alcohol) occasional Comments No Sex and Gender Information Value Date Recorded Sex Assigned at Not on file Legal Sex Female 5:29 PM EST Gender Identity Not on file Sexual Orientation Not on file documented as of this encounter Plan of Treatment Upcoming Encounters Date Type Department Care Team (Late st Contact Info) Description 10/23/2025 12:00 PM EST Office Visit Adult [facility] [address] [place] [phone] Jessica Mancia PA [address] [place] [address] documented as of this encounter Visit Diagnoses Not on filedocumented in this encounter Care Teams Examination Grader Relationship Specialty Start Date End Date Luz Rey MD [address] [place] [phone] PCP - General Internal Medicine 07/25/21 documented as of this encounter
--- OUTSIDE RECORDS SUMMARY | 2025-10-08 09:28 | XMS_ITS | Encounter Summary ---
Author Organization [facility] [place] [address] Care Team Providers Care Leg Breaker Name Role Phone Luz Rey MD Primary Care Prov ider Encounter Details Date Type Department Care Team (Late Contact Info) Description 08/24/2024 Telephone Radiology Department - [address] [phone] Bouchra Johnson MD [address] [facility] [address] [place] [phone] Social History Tobacco Use Types Packs/Day Years Used Date Smoking Tobacco: Never Smokeless Tobacco: Never Alcohol Use Standard Drinks/Week Comments Yes 0 (1 standard drink = 0.6 oz pur e alcohol) Comments Unknown Sex and Gender Information Value Date Recorded Sex Assigned at Not on file Legal Sex Female 5:29 PM EST Gender Identity Not on file Sexual Orientation Not on file documented as of this encounter Plan of Treatment Upcoming Encounters Date Type Department Care Team (Late Contact Info) Description 10/23/2025 12:00 PM EST Office Visit Adult Medicine - [place] [address] [place] [phone] Jessica Mancia PA [address] [place] [address] documented as of this encounter Visit Diagnoses Not on filedocumented in this encounter Care Teams Leg Breaker Relationship Specialty Start Date End Date Luz Rey MD [address] [place] [phone] PCP - General Internal Medicine 07/25/21 documented as of this encounter
--- OUTSIDE RECORDS SUMMARY | 2025-10-08 09:28 | XMS_ITS | Encounter Summary ---
Author Organization [facility] [place] [address] Care Team Providers Care Electric Scoop Operator Name Role Phone Luz Rey MD Primary Care Prov ider Encounter Details Date Type Department Care Team (Late st Contact Info) Description 09/25/2025 Results Follow-Up Adult [facility] [address] [place] [phone] Mitchell العراقي PA [address] [place] [address] Social History Tobacco Use Types Packs/Day Years [...] 10/23/2025 12:00 PM EST Office Visit Adult [facility] [address] [place] [phone] Jessica Mancia PA [address] [place], [place] documented as of this encounter Visit Diagnoses Not on filedocumented in this encounter Care Teams Electric Scoop Operator Relationship Specialty Start Date End Date Luz Rey MD [address] [place] [phone] PCP - General Internal Medicine 07/25/21 documented as of this encounter
== END 2025-10-08 09:23 | disposition home or self-care (01) ==
LOC: HO.HPHYS 08:45
PROVIDERS: PCP Internal Medicine; Visit Provider Physical Medicine & Rehabilitation
DX: M75.02 Adhesive capsulitis of left shoulder (principal); M25.512 Pain in left shoulder; G89.29 Other chronic pain; M75.42 Impingement syndrome of left shoulder; M54.2 Cervicalgia
CPT/HCPCS: 99204; G2211